=== PATIENT | male | born 1990 | race African-American/Black ===

== ENCOUNTER 2017-07-31 18:48 | Emergency (ER) | payer OTHER ==
[2017-07-31 18:55] VITALS: TEMP 98.4
--- NOTE | 2017-07-31 19:15 | CPEKG ---
Heart Rate: 67 RR Interval: 896 P-R Interval: 204 QRSD Interval: 110 QT Interval: 384 QTC Interval: 406 P [place]: 61 QRS [place]: 73 T Wave [place]: 63 EKG Severity - ABNORMAL ECG - EKG Impression: SINUS RHYTHM EKG Impression: NONSPECIFIC INTRAVENTRICULAR CONDUCTION DELAY Electronically Signed By: Donald Crook 31-Jul-2017 20:14:57
[2017-07-31] MEDS ORDERED: ASPIRIN 81 MG CHEWABLE TAB PO ONE (19:31)
--- NOTE | 2017-07-31 19:38 | EDPHY ---
H & P Time Seen by Provider: 07/31/17 19:05 HPI/ROS: CHIEF COMPLAINT: Chest pain, sore throat HISTORY OF PRESENT ILLNESS: Patient is a 26-year-old male who presents emergency department with sore throat starting 3 days ago. It is diffuse. He has noticed bumps in the back of his throat. Appears red. He has increased pain with swallowing. He denies fevers or chills. Patient also has had 36 hr of constant left anterior chest pain. It does not radiate. He has had no shortness of. He has had a mild cough that is nonproductive. No abdominal pain. No nausea vomiting. No fevers or chills. No leg pain or swelling. REVIEW OF SYSTEMS: My complete review of systems is negative except as mentioned in the HPI. Past Medical/Surgical History: Anxiety, depression, asthma Past surgical history: Tonsillectomy Social history: Patient smokes THC Smoking Status: Light smoker Physical Exam: 36.9, 126/91, 64, 18, 96% on room air GENERAL: Well-appearing, in no acute distress, alert. The room smells of cannabis. HEENT: Eyes normal to inspection, erythematous pharynx. Multiple small red color lesions. No discharge. Uvula midline. No mass or swelling. no signs of dehydration. NECK: No thyromegaly, mild bilateral anterior lymphadenopathy, supple. RESPIRATORY: Clear to auscultation bilaterally, no rales, rhonchi or wheezing. CVS: Regular rate and rhythm, no rubs, murmurs, or gallops. ABDOMEN: Soft, nontender, nondistended, no organomegaly. BACK: Normal to inspection, no CVA tenderness. SKIN: Normal color, no rash, warm, dry. No pallor. EXTREMITIES: No pedal edema, no calf tenderness, no Homans sign or cords, no joint swelling. NEURO/PSYCH: Alert and oriented x3, normal mood and affect, normal motor sensory exam. No obvious cranial nerve deficit. Constitutional: Initial Vital Signs Temperature (C) 36.9 C 07/31/17 18:53 Heart Rate 64 07/31/17 18:53 Respiratory Rate 18 07/31/17 18:53 Blood Pressure 126/71 H 07/31/17 18:53 O2 Sat (%) 96 07/31/17 18:53 O2 Delivery Mode Room Air Allergies/Adverse Reactions: gentamicin Allergy (Verified 07/31/17 18:55) Home Medications: Medication Instructions Recorded FLUOXETINE HCL 07/31/17 Singulair 10 mg (*) 07/31/17 Medical Decision Making ED Course/Re-evaluation: In the emergency department I discussed possible etiologies with the patient. I answered all his questions. IV was placed. Laboratory studies were obtained. Patient had x-ray and EKG. Patient was given aspirin 324 mg orally. Patient was low risk for pulmonary embolus. His perc rule was negative. EKG shows normal sinus rhythm, normal rate, normal axis, slight idioventricular conduction delay. There are no ST or T-wave abnormalities. EKG is normal as interpreted by me. The CBC chemistries unremarkable. Strep screen is negative. Troponin negative. 2132: I discussed all results with the patient. He had no signs of respiratory dressed. His exam is unchanged. He is given warnings prior to leaving. He will return with worsening symptoms. Differential Diagnosis: My differential includes but is not limited to strep pharyngitis, pharyngitis, candidiasis, esophagitis, tracheitis, ACS, acute NC, bronchitis, pneumonia - Data Points Laboratory Results: Laboratory Results 07/31/17 19:15 07/31/17 19:15 07/31/17 07/31/17 07/31/17 Unknown 19:15 19:15 WBC RBC Hgb Hct MCV MCH MCHC RDW Plt Count MPV Neut % (Auto) Lymph % (Auto) [place] % (Auto) Eos % (Auto) Baso % (Auto) Nucleat RBC Rel Count Absolute Neuts (auto) Absolute Lymphs (auto) Absolute Monos (auto) Absolute Eos (auto) Absolute Basos (auto) Absolute Nucleated RBC Immature Gran % Immature Gran # Sodium 141 mEq/L mEq/L (134-144) Potassium 4.1 mEq/L mEq/L (3.5-5.2) Chloride 105 mEq/L mEq/L (97-110) Carbon Dioxide 23 mEq/l mEq/l (22-31) Anion Gap 13 mEq/L mEq/L (8-16) BUN 17 mg/dL mg/dL (7-23) Creatinine 1.0 mg/dL mg/dL (0.7-1.3) Estimated GFR > 60 Glucose 74 mg/dL mg/dL (70-100) Calcium 10.0 mg/dL mg/dL (8.5-10.4) Troponin I < 0.012 ng/mL ng/mL (0.000-0.034) TSH 2.370 uIU/mL uIU/mL (0.465-4.680) Group A Strep Screen NEGATIVE (NEGATIVE) Group A Strep DNA Pending 07/31/17 19:15 WBC 9.18 10^3/uL 10^3/uL (3.80-9.50) RBC 5.00 10^6/uL 10^6/uL (4.40-6.38) Hgb 15.8 g/dL g/dL (13.7-17.5) Hct 45.1 % % (40.0-51.0) MCV 90.2 fL fL (81.5-99.8) MCH 31.6 pg pg (27.9-34.1) MCHC 35.0 g/dL g/dL (32.4-36.7) RDW 13.2 % % (11.5-15.2) Plt Count 160 10^3/uL 10^3/uL (150-400) MPV 10.6 fL fL (8.7-11.7) Neut % (Auto) 55.1 % % (39.3-74.2) Lymph % (Auto) 32.9 % % (15.0-45.0) [place] % (Auto) 6.9 % % (4.5-13.0) Eos % (Auto) 4.4 % % (0.6-7.6) Baso % (Auto) 0.4 % % (0.3-1.7) Nucleat RBC Rel Count 0.0 % % (0.0-0.2) Absolute Neuts (auto) 5.06 10^3/uL 10^3/uL (1.70-6.50) Absolute Lymphs (auto) 3.02 10^3/uL H 10^3/uL (1.00-3.00) Absolute Monos (auto) 0.63 10^3/uL 10^3/uL (0.30-0.80) Absolute Eos (auto) 0.40 10^3/uL 10^3/uL (0.03-0.40) Absolute Basos (auto) 0.04 10^3/uL 10^3/uL (0.02-0.10) Absolute Nucleated RBC 0.00 10^3/uL 10^3/uL (0-0.01) Immature Gran % 0.3 % % (0.0-1.1) Immature Gran # 0.03 10^3/uL 10^3/uL (0.00-0.10) Sodium Potassium Chloride Carbon Dioxide Anion Gap BUN Creatinine Estimated GFR Glucose Calcium Troponin I TSH Group A Strep Screen Group A Strep DNA Medications Given: Discontinued Medications Aspirin (Aspirin) 324 mg PO EDNOW ONE Stop: 07/31/17 19:32 Last Admin: 07/31/17 19:34 Dose: 324 mg Departure - Departure Disposition: Home, Routine, Self-Care Clinical Impression: Pharyngitis Qualifiers: Pharyngitis/tonsillitis etiology: unspecified etiology Qualified Code(s): J02.9 - Acute pharyngitis, unspecified Chest pain Qualifiers: Chest pain type: precordial pain Qualified Code(s): R07.2 - Precordial pain Condition: Good Instructions: Chest Pain (ED), Pharyngitis (ED) Additional Instructions: Return with increasing sore throat, difficulty swallowing, persistent fever, shortness of breath or any other concerns. Referrals: [facility] [Other] - 2-3 days, call for appt.
[2017-07-31 20:20] LABS: PLATELET COUNT 160 10^3/uL (150-400)
[2017-07-31 21:20] VITALS: BP 117/76; PULSE 76; RESP 20; O2SAT 100
== END 2017-07-31 21:40 | disposition home or self-care (01) ==
DX: J02.9 Acute pharyngitis, unspecified (principal); R07.2 Precordial pain; F17.200 Nicotine dependence, unspecified, uncomplicated; J45.909 Unspecified asthma, uncomplicated

== ENCOUNTER 2017-12-13 11:34 | Emergency (ER) | payer SELFPAY ==
--- NOTE | 2017-12-13 12:48 | EDPHY ---
H & P Time Seen by Provider: 12/13/17 12:47 HPI/ROS: Chief complaint. Stomach issues HPI. Patient is a normally healthy 27 male with several complaints. He has had left jaw pain with some swelling for the past 6 days. Denies injury. He has had no sore throat or trouble swallowing. Some chills but no fever. Diarrhea for 1 day with 6 episodes. No blood. No abdominal pain. No nausea or vomiting. He has had sick contacts. He also notes he has just generally achy. ROS Constitutional. chills, no weakness Eyes. no problems with vision ENT. Left cheek pain and swelling Cardiovascular. no chest pain Respiratory. no shortness of breath, no cough Abdominal. Diarrhea . no problems urinating MS. no calf pain/swelling, no neck/back pain, no joint pain Skin. no rash Lymph. no swollen glands Neuro. no headache, no dizziness, no difficulty walking or with speech Past Medical/Surgical History: Tonsillectomy, depression, anxiety, asthma Social History: Single, daily smoker, no alcohol Smoking Status: Light smoker Physical Exam: General Appearance: Alert well-developed male mild distress vital signs are stable Eyes: Pupils equal and round no pallor or injection. ENT, pharynx without injection. Mucous membranes are moist. Percussion of teeth on the left side really do not reveal any obvious tenderness. There is no evidence for abscess. He is mildly swollen on the left cheek. Respiratory: There are no retractions, lungs are clear to auscultation. Cardiovascular: Regular rate and rhythm. Gastrointestinal: Abdomen is soft and nontender, no masses, bowel sounds normal. Neurological: Awake and alert, sensory and motor exams grossly normal. Skin: Warm and dry, no rashes. Musculoskeletal: Neck is supple nontender. Extremities symmetrical, full range of motion. Psychiatric: Patient is oriented X 3, there is no agitation. Constitutional: Initial Vital Signs Temperature (C) 36.6 C 12/13/17 11:43 Heart Rate 65 12/13/17 11:43 Respiratory Rate 16 12/13/17 11:43 Blood Pressure 117/78 12/13/17 11:43 O2 Sat (%) 98 12/13/17 11:43 O2 Delivery Mode Room Air Allergies/Adverse Reactions: gentamicin Allergy (Verified 07/31/17 18:55) Home Medications: Medication Instructions Recorded FLUOXETINE HCL 07/31/17 Singulair 10 mg (*) 07/31/17 Albuterol 12/13/17 Cephalexin [Keflex (*)] 500 mg PO TID #21 cap 12/13/17 Zyrtec 12/13/17 Medical Decision Making ED Course/Re-evaluation: On re-evaluation patient remained stable. He and I discussed treatment plan including criteria for return importance of follow-up and further evaluation. He expresses understanding and agreement Differential Diagnosis: Appears to have some mild swelling to the left cheek. I am concerned about a done to [place] ache etiology. There has been no trauma that would require x-ray. His abdomen is nonacute. Departure - Departure Disposition: Home, Routine, Self-Care Clinical Impression: Left facial swelling Condition: Good Instructions: Loperamide (By mouth), Acute Diarrhea (ED) Additional Instructions: Cephalexin as antibiotic. Imodium (loperamide) as needed for diarrhea. Ibuprofen 600 mg every 6 hr for discomfort Return for worsening swelling or diarrhea. Recheck in 2-3 days if not improved Referrals: NONE *PRIMARY CARE P,. [Primary Care Provider] - As per Instructions [facility] [Outside] - 2-3 days, if not improved Stand Alone Forms: Work Excuse Prescriptions: Cephalexin [Keflex (*)] 500 mg PO TID #21 cap
[2017-12-13 13:10] VITALS: BP 121/93
== END 2017-12-13 13:10 | disposition home or self-care (01) ==
DX: R22.0 Localized swelling, mass and lump, head (principal); J45.909 Unspecified asthma, uncomplicated; F17.200 Nicotine dependence, unspecified, uncomplicated